=== PATIENT | female | born 1940 | race Caucasian/White ===

== ENCOUNTER 2023-04-25 17:38 | Observation (INO) | payer OTHER ==
--- NOTE | 2023-04-25 18:00 | RAD REPORT ---
EXAM DESCRIPTION: CT - Ct Stroke Brain Wo Cont - 04/25/2023 5:45 pm CLINICAL HISTORY: STROKE ALERT COMPARISON: No comparisons TECHNIQUE: Noncontrast head CT images were obtained without IV contrast. Multiplanar reformats were generated and reviewed. All CT scans are performed using dose optimization technique as appropriate and may include automated exposure control or mA/KV adjustment according to patient size. FINDINGS: No intracranial hemorrhage, mass, or edema. Midline structures are unremarkable. Normal ventricular caliber for age. Nonspecific periventricular and deep white matter hypodensities, suggestive of chronic small vessel i schemic changes. Right frontal and parietal cortical areas of encephalomalacia with underlying white matter hypodensit y, favored to represent sequelae of remote ischemia. Khan-white matter differentiation elsewhere is p reserved, without evidence of acute infarct. No abnormal extra-axial fluid collections. Mastoid air cells are clear. Opacification with polypoidal thickening in the left sphenoid sinus. No acute bony findings. Follow up Breast ptosis frontalis interna noted. IMPRESSION: No evidence of an acute intracranial process. Right frontal and parietal cortical regions of encephalomalacia, concerning for sequelae of remote is chemia. Left sphenoid sinus opacification, please correlate for symptoms of acute sinusitis.
[2023-04-25 18:04] LABS: Absolute Lymphocytes (CBC) 1.6 K/uL (0.7-4.9); Hematocrit 42.4 % (36.0-45.0); Lymphocytes % 20.5 % (15.3-44.8); MCV 93.3 fL (80-100); MPV 7.5 fL (7.6-11.3); Platelets 333 thou/uL (152-406); RBC Red Blood Cell Count 4.55 M/uL (3.86-4.86)
[2023-04-25 18:10] LABS: Protime INR 2.2
[2023-04-25 18:22] LABS: Troponin High Sensitivity 10.2 pg/mL (<58.9)
--- NOTE | 2023-04-25 18:56 | RAD REPORT ---
EXAM DESCRIPTION: [place] Single View04/25/2023 6:11 pm CLINICAL HISTORY: facial droop COMPARISON: No comparisons TECHNIQUE: Portable AP view of the chest. FINDINGS: The lungs are clear apart from streaky right basilar opacities suggestive of atelectasis. Patient rotation limits evaluation. No pneumothorax or effusion. The cardiomediastinal contours are unremarkable. IMPRESSION: No acute cardiopulmonary process.
--- NOTE | 2023-04-25 20:03 | RAD REPORT ---
EXAM DESCRIPTION: CT - Neck Angio - 04/25/2023 7:28 pm CLINICAL HISTORY: facial droop COMPARISON: No comparisons TECHNIQUE: Axial CT angiography images of the head was performed with multiplanar and maximum intens ity projection reconstructions. Images performed following intravenous administration of 100mL Isovue 370. All CT scans are performed using dose optimization technique as appropriate and may include automated exposure control or mA/KV adjustment according to patient size. Quantification of carotid stenosis, if any, is performed according to NASCET criteria. FINDINGS: A left aortic arch is identified with variant 2 vessel arch configuration of the great ves sels. No significant flow abnormality is seen of the common carotid bilaterally. Up to moderate atherosclerotic calcifications at the carotid bulbs. No significant stenosis is identi fied involving the cervical segments of both internal carotid arteries. Preserved flow is seen within both vertebral arteries throughout the neck, although there is multifoc al [id number] narrowing of the left vertebral artery at its origin, along the distal V1, proxim al V2, and proximal V3 segments. IMPRESSION: Multifocal up to moderate narrowing of the left vertebral artery, starting at the origin , favored to relate to noncalcified atherosclerotic plaque. No other significant flow abnormality of the neck vessels is identified. CAROTID STENOSIS REFERENCE USING NASCET CRITERIA: % ICA stenosis = (1 - narrowest ICA diameter/diameter of distal cervical ICA) x 100. Mild - <50% stenosis. Moderate - 50-69% stenosis. Severe - 70-94% stenosis. Near occlusion - 95-99% stenosis. Occluded - 100% stenosis.
--- NOTE | 2023-04-25 20:06 | ER ---
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 The charge nurse has been notified. The kc6 patients blood glucose was checked before arriving to the hospital and was found to be normal. Initial Sepsis Screen: Does the patient meet any 2 criteria? No. Patient's initial sepsis screen is negative. Does the patient have a suspected source of infection? No. Patient's initial sepsis screen is negative. 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 Coronavirus screen: At this time, the client does not indicate any symptoms associated with coronavirus-19. Ebola Screen: No symptoms or risks identified at this time. Risk Assessment: Do you want to hurt yourself or someone else? Patient reports no desire to harm self or others. Onset of symptoms was April 25, 2023 at 16:45. 17:53 Method Of Arrival: EMS: [facility] ap3 17:53 Acuity: RICKEY 2 ap3 Triage Assessment: 17:29 The onset of the patients symptoms was April 25, 2023 at 16:00. kc6 17:29 General: Appears in no apparent distress. comfortable, obese, well groomed, well kc6 developed, Behavior is calm, cooperative, appropriate for age. Pain: Denies pain. EENT: No signs and/or symptoms were reported regarding the EENT system. 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 Full function Gait is steady, Speech is normal, Facial droop on left, Facial symmetry: tongue is midline, Pupils are PERRLA, Intact. Cardiovascular: Capillary refill < 3 seconds. Respiratory: Airway is patent Trachea midline Respiratory effort is even, unlabored, Respiratory pattern is regular, symmetrical. GI: No signs and/or symptoms were reported involving the gastrointestinal system. : No signs and/or symptoms were reported regarding the genitourinary system. Derm: No signs and/or symptoms reported regarding the dermatologic system. Skin is intact, is healthy with good turgor, Skin is pink, warm \T\ dry. Musculoskeletal: No signs and/or symptoms reported regarding the musculoskeletal system. Circulation, motion, and sensation intact. Capillary refill < 3 seconds, Range of motion: intact in all extremities. Stroke Activation: Symptom onset < 3 hours Physician: Stroke Attending; Name: ; Notified At: ; Arrived At: Physician: Chief Stroke Resident; Name: ; Notified At: ; Arrived At: Physician: Stroke Resident; Name: ; Notified At: ; Arrived At: Physician: ED Attending; Name: ; Notified At: ; Arrived At: Physician: ED Resident; Name: ; Notified At: ; Arrived At: Historical: - Allergies: 18:02 No Known Allergies; kc6 - PMHx: 18:02 Hypertensive disorder; pleural effusion; kc6 - Immunization history:: Adult Immunizations up to date. - Social history:: Smoking status: Patient denies any tobacco usage or history of. Screenin:29 [place] Swallow Protocol Brief Cognitive Screen What is your name? Normal, Where are you kc6 right now? Normal, What year is it? Normal. Oral Mechanism Examination Facial Symmetry: Normal, Motion: Normal, Lip Closure: Normal, Oral Mechanism Result: Normal. 3 oz Water Swallow Challenge: Pt able to drink all water without stopping, coughing, choking or throat clearing: Yes Result: PASS MD Notified: Chaim Daily MD. 17:54 Abuse screen: Denies threats or abuse. Nutritional screening: No deficits noted. ap3 Tuberculosis screening: No symptoms or risk factors identified. 18:00 [facility] ED Fall Risk Assessment (Adult) History of falling in the last 3 months, kc6 including since admission No falls in past 3 months (0 pts) Confusion or Disorientation No (0 pts) Intoxicated or Sedated No (0 pts) Impaired Gait Yes (1 pt) Mobility Assist Device Used Yes (1 pt) Altered Elimination No (0 pt) Score/Fall Risk Level 0 - 2 = Low Risk. Assessment: 17:29 Reassessment: please see triage assessment. kc6 17:29 VAN Scoring: Arm Drift: Patients demonstrates NO arm weakness. Patient is VAN Negative. kc6 Visual Disturbance: No visual disturbance noted. Aphasia: No aphasia noted. Neglect: No neglect noted. 18:29 Reassessment: Patient appears in no apparent distress at this time. No changes from kc6 previously documented assessment. Patient and/or family updated on plan of care and expected duration. Pain level reassessed. Patient is alert, oriented x 3, equal unlabored respirations, skin warm/dry/pink. 19:00 General: Appears in no apparent distress. comfortable, obese, well groomed, well pf1 developed, Behavior is calm, cooperative, appropriate for age, quiet. 19:00 Pain: Denies pain. Neuro: Level of Consciousness is awake, alert, obeys commands, pf1 Oriented to person, place, time, left side mouth has facial droop when smiling. Cardiovascular: No deficits noted. Capillary refill < 3 seconds Patient's skin is warm and dry. Respiratory: No deficits noted. Airway is patent Respiratory effort is even, unlabored, Respiratory pattern is regular, symmetrical. GI: No deficits noted. Abdomen is round non-distended. : No deficits noted. No signs and/or symptoms were reported regarding the genitourinary system. EENT: No deficits noted. No signs and/or symptoms were reported regarding the EENT system. Derm: No deficits noted. No signs and/or symptoms reported regarding the dermatologic system. Musculoskeletal: No deficits noted. No signs and/or symptoms reported regarding the musculoskeletal system. 20:00 Reassessment: Patient appears in no apparent distress at this time. Patient and/or pf1 family updated on plan of care and expected duration. Pain level reassessed. Patient is alert, oriented x 3, equal unlabored respirations, skin warm/dry/pink. 21:00 Reassessment: Patient appears in no apparent distress at this time. Patient and/or pf1 family updated on plan of care and expected duration. Pain level reassessed. 22:00 Reassessment: Patient appears in no apparent distress at this time. Patient and/or pf1 family updated on plan of care and expected duration. Pain level reassessed. Patient is alert, oriented x 3, equal unlabored respirations, skin warm/dry/pink. 23:00 Reassessment: Patient appears in no apparent distress at this time. No changes from pf1 previously documented assessment. Patient and/or family updated on plan of care and expected duration. Pain level reassessed. Patient is alert, oriented x 3, equal unlabored respirations, skin warm/dry/pink. 04/26 00:00 Reassessment: Patient appears in no apparent distress at this time. Patient and/or pf1 family updated on plan of care and expected duration. Pain level reassessed. Patient is alert, oriented x 3, equal unlabored respirations, skin warm/dry/pink. 01:00 Reassessment: Patient appears in no apparent distress at this time. Patient and/or pf1 family updated on plan of care and expected duration. Pain level reassessed. Patient is alert, oriented x 3, equal unlabored respirations, skin warm/dry/pink. Vital Signs: 04/25 18:00 BP 192 / 101; Pulse 76; Resp 21 S; Temp 98.2(TE); Pulse Ox 99% on R/A; Weight 90.72 kg kc6 (R); Height 5 ft. 4 in. (R); 18:09 BP 171 / 91; kc6 19:00 BP 170 / 79; Pulse 84; Resp 16; Temp 98.1; Pulse Ox 99% on R/A; Pain 0/10; pf1 20:00 BP 176 / 108; Pulse 83; Resp 16; Pulse Ox 98% on R/A; Pain 0/10; pf1 21:00 BP 156 / 76; Pulse 80; Resp 18; Pulse Ox 100% ; Pain 0/10; pf1 22:00 BP 206 / 79; Pulse 90; Resp 16; Pulse Ox 98% ; pf1 22:30 BP 184 / 74; Pulse 86; Resp 16; Pulse Ox 97% on R/A; Pain 0/10; pf1 23:30 BP 166 / 73; Pulse 64; Resp 16; Pulse Ox 96% on R/A; Pain 0/10; pf1 04/26 00:30 BP 152 / 68; Pulse 68; Resp 20; Pulse Ox 96% on R/A; Pain 0/10; pf1 04/25 18:00 Body Mass Index 34.33 (90.72 kg, 162.56 cm) kc6 19:00 Pain Scale: Adult pf1 20:00 Pain Scale: Adult pf1 21:00 Pain Scale: Adult pf1 22:30 Pain Scale: Adult pf1 23:30 Pain Scale: Adult pf1 04/26 00:30 Pain Scale: Adult pf1 NIH Stroke Scale Scores: 04/25 17:29 NIHSS Score: 1 kc6 17:29 NIHSS Score: 1 kc6 17:53 NIHSS Score: 1 kdr 19:00 NIHSS Score: 1 pf1 20:00 NIHSS Score: 1 pf1 21:00 NIHSS Score: 1 pf1 22:00 NIHSS Score: 1 pf1 23:00 NIHSS Score: 1 pf1 04/26 00:00 NIHSS Score: 1 pf1 01:00 NIHSS Score: 1 pf1 ED Course: 04/25 17:29 Patient has correct armband on for positive identification. Placed in gown. Bed in low kc6 position. Call light in reach. Side rails up X2. Client placed on continuous cardiac and pulse oximetry monitoring. NIBP monitoring applied. monitor worker on. 17:42 Patient arrived in ED. sb4 17:45 CT Stroke Brain w/o Contrast In Process Unspecified. EDMS 17:49 Chaim Daily MD is Attending Physician. kdr 17:54 Triage completed. ap3 17:55 Arm band placed on right wrist. ap3 18:00 Elida Nye RN is Primary Nurse. kc6 18:00 Inserted saline lock: 20 gauge in right antecubital area, using aseptic technique. kc6 Blood collected. Patient maintains SpO2 saturation greater than 95% on room air. 18:13 Stroke CXR 1 View In Process Unspecified. EDMS 19:00 Report given to ISRA Martinez. kc6 19:29 CT Head Angio In Process Unspecified. EDMS 19:29 CT Neck Angio In Process Unspecified. EDMS 20:05 Francisco Escalante MD is Hospitalizing Provider. kdr 20:35 initiated tranfer with [facility] with Shawna at the transfer center. jr12 21:04 Provided Education on: need for admit. pf1 21:04 Patient admitted, IV remains in place. pf1 21:04 No provider procedures requiring assistance completed. pf1 22:18 transfer to [facility] is put on hold due to family members debating wether they [facility] want patient transfer to [facility] instead or not. 22:27 Initiated transfer with [facility].spoke with [place] [id number] coordinator. will call back if they have availability. 22:44 Miguel Angelsnehal from [facility] transfer center returned call declined transfer due to capacity. jr12 23:18 family decided to proceed with transfer with [facility]. contacted [facility] jr12 to proceed with transfer..Spoke with Shawna again. Administered Medications: 22:40 Drug: Metoprolol PO 25 mg PO once Route: PO; pf1 23:24 Follow up: Response: Blood pressure is lowered pf1 23:30 Drug: Aspirin PO 325 mg PO once Route: PO; pf1 04/26 00:30 Follow up: Response: No adverse reaction pf1 04/25 23:45 Drug: Clopidogrel PO 300 mg PO once Route: PO; pf1 04/26 00:30 Follow up: Response: No adverse reaction pf1 Medication: 04/25 21:04 VIS not applicable for this client. pf1 Outcome: 20:05 Decision to Hospitalize by Provider. kdr 21:04 Admitted to ER Hold. Please see [facility] for further documentation. pf1 21:04 Condition: stable 21:04 Instructed on the need for admit, Demonstrated understanding of instructions, 23:16 ER care complete, transfer ordered by . kdr 04/26 01:07 Transferred by ground EMS to [facility], Transfer form completed. pf1 X-rays sent w/ patient. Condition: stable Instructed on the need for transfer, Demonstrated understanding of instructions, patient report given to ISRA Carver and report given to EMS. Patient being transferred at this time. 01:08 Patient left the ED. pf1 NIH Stroke Scale - NIH Stroke Score Date: 04/25/2023 Time: 17:29 Total Score = 1 10. Dysarthria (speech clarity - read or repeat words) - 0(Normal) 11. Extinction and Inattention (visual/tactile/auditory/spatial/personal) - 0(No abnormality) 1a. Level of Consciousness (LOC) - 0(Alert) 1b. Level of Consciousness (LOC) (Month \T\ Age) - 0(Both) 1c. LOC Commands (Open \T\ Closes Eyes/Supervisor Forming And Tempering) - 0(Both) 2. Best Gaze (Lateral Gaze Paresis) - 0(Normal) 3. Visual Field Loss - 0(No visual loss) 4. Facial Palsy - 1(Minor Paralysis) 5a. Left Arm: Motor (10-second hold) - 0(No drift) 5b. Right Arm: Motor (10-second hold) - 0(No drift) 6a. Left Leg: Motor (5-second hold - always test supine) - 0(No drift) 6b. Right Leg: Motor (5-second hold - always test supine) - 0(No drift) 7. Limb Ataxia (finger/nose \T\ heel/guzman - test with eyes open) - 0(Absent) 8. Sensory Loss (pinprick arms/legs/face) - 0(Normal) 9. Best Language: Aphasia (description/naming/reading) - 0(No aphasia) Initials: 6 NIH Stroke Scale - NIH Stroke Score Date: 04/25/2023 Time: 17:29 Total Score = 1 10. Dysarthria (speech clarity - read or repeat words) - 0(Normal) 11. Extinction and Inattention (visual/tactile/auditory/spatial/personal) - 0(No abnormality) 1a. Level of Consciousness (LOC) - 0(Alert) 1b. Level of Consciousness (LOC) (Month \T\ Age) - 0(Both) 1c. LOC Commands (Open \T\ Closes Eyes/Supervisor Forming And Tempering) - 0(Both) 2. Best Gaze (Lateral Gaze Paresis) - 0(Normal) 3. Visual Field Loss - 0(No visual loss) 4. Facial Palsy - 1(Minor Paralysis) 5a. Left Arm: Motor (10-second hold) - 0(No drift) 5b. Right Arm: Motor (10-second hold) - 0(No drift) 6a. Left Leg: Motor (5-second hold - always test supine) - 0(No drift) 6b. Right Leg: Motor (5-second hold - always test supine) - 0(No drift) 7. Limb Ataxia (finger/nose \T\ heel/guzman - test with eyes open) - 0(Absent) 8. Sensory Loss (pinprick arms/legs/face) - 0(Normal) 9. Best Language: Aphasia (description/naming/reading) - 0(No aphasia) Initials: kc6 NIH Stroke Scale - NIH Stroke Score Date: 04/25/2023 Time: 17:53 Total Score = 1 10. Dysarthria (speech clarity - read or repeat words) - 0(Normal) 11. Extinction and Inattention (visual/tactile/auditory/spatial/personal) - 0(No abnormality) 1a. Level of Consciousness (LOC) - 0(Alert) 1b. Level of Consciousness (LOC) (Month \T\ Age) - 0(Both) 1c. LOC Commands (Open \T\ Closes Eyes/Supervisor Forming And Tempering) - 0(Both) 2. Best Gaze (Lateral Gaze Paresis) - 0(Normal) 3. Visual Field Loss - 0(No visual loss) 4. Facial Palsy - 1(Minor Paralysis) 5a. Left Arm: Motor (10-second hold) - 0(No drift) 5b. Right Arm: Motor (10-second hold) - 0(No drift) 6a. Left Leg: Motor (5-second hold - always test supine) - 0(No drift) 6b. Right Leg: Motor (5-second hold - always test supine) - 0(No drift) 7. Limb Ataxia (finger/nose \T\ heel/guzman - test with eyes open) - 0(Absent) 8. Sensory Loss (pinprick arms/legs/face) - 0(Normal) 9. Best Language: Aphasia (description/naming/reading) - 0(No aphasia) Initials: kdr NIH Stroke Scale - NIH Stroke Score Date: 04/25/2023 Time: 19:00 Total Score = 1 10. Dysarthria (speech clarity - read or repeat words) - 0(Normal) 11. Extinction and Inattention (visual/tactile/auditory/spatial/personal) - 0(No abnormality) 1a. Level of Consciousness (LOC) - 0(Alert) 1b. Level of Consciousness (LOC) (Month \T\ Age) - 0(Both) 1c. LOC Commands (Open \T\ Closes Eyes/Supervisor Forming And Tempering) - 0(Both) 2. Best Gaze (Lateral Gaze Paresis) - 0(Normal) 3. Visual Field Loss - 0(No visual loss) 4. Facial Palsy - 1(Minor Paralysis) 5a. Left Arm: Motor (10-second hold) - 0(No drift) 5b. Right Arm: Motor (10-second hold) - (No drift) 6a. Left Leg: Motor (5-second hold - always test supine) - 0(No drift) 6b. Right Leg: Motor (5-second hold - always test supine) - 0(No drift) 7. Limb Ataxia (finger/nose \T\ heel/guzman - test with eyes open) - 0(Absent) 8. Sensory Loss (pinprick arms/legs/face) - 0(Normal) 9. Best Language: Aphasia (description/naming/reading) - 0(No aphasia) Initials: pf1 NIH Stroke Scale - NIH Stroke Score Date: 04/25/2023 Time: 20:00 Total Score = 1 10. Dysarthria (speech clarity - read or repeat words) - 0(Normal) 11. Extinction and Inattention (visual/tactile/auditory/spatial/personal) - 0(No abnormality) 1a. Level of Consciousness (LOC) - 0(Alert) 1b. Level of Consciousness (LOC) (Month \T\ Age) - 0(Both) 1c. LOC Commands (Open \T\ Closes Eyes/Supervisor Forming And Tempering) - 0(Both) 2. Best Gaze (Lateral Gaze Paresis) - 0(Normal) 3. Visual Field Loss - 0(No visual loss) 4. Facial Palsy - 1(Minor Paralysis) 5a. Left Arm: Motor (10-second hold) - 0(No drift) 5b. Right Arm: Motor (10-second hold) - 0(No drift) 6a. Left Leg: Motor (5-second hold - always test supine) - 0(No drift) 6b. Right Leg: Motor (5-second hold - always test supine) - 0(No drift) 7. Limb Ataxia (finger/nose \T\ heel/guzman - test with eyes open) - 0(Absent) 8. Sensory Loss (pinprick arms/legs/face) - 0(Normal) 9. Best Language: Aphasia (description/naming/reading) - 0(No aphasia) Initials: pf1 NIH Stroke Scale - NIH Stroke Score Date: 04/25/2023 Time: 21:00 Total Score = 1 10. Dysarthria (speech clarity - read or repeat words) - 0(Normal) 11. Extinction and Inattention (visual/tactile/auditory/spatial/personal) - 0(No abnormality) 1a. Level of Consciousness (LOC) - 0(Alert) 1b. Level of Consciousness (LOC) (Month \T\ Age) - 0(Both) 1c. LOC Commands (Open \T\ Closes Eyes/Supervisor Forming And Tempering) - 0(Both) 2. Best Gaze (Lateral Gaze Paresis) - 0(Normal) 3. Visual Field Loss - 0(No visual loss) 4. Facial Palsy - 1(Minor Paralysis) 5a. Left Arm: Motor (10-second hold) - 0(No drift) 5b. Right Arm: Motor (10-second hold) - 0(No drift) 6a. Left Leg: Motor (5-second hold - always test supine) - 0(No drift) 6b. Right Leg: Motor (5-second hold - always test supine) - 0(No drift) 7. Limb Ataxia (finger/nose \T\ heel/guzman - test with eyes open) - 0(Absent) 8. Sensory Loss (pinprick arms/legs/face) - 0(Normal) 9. Best Language: Aphasia (description/naming/reading) - 0(No aphasia) Initials: pf1 NIH Stroke Scale - NIH Stroke Score Date: 04/25/2023 Time: 22:00 Total Score = 1 10. Dysarthria (speech clarity - read or repeat words) - 0(Normal) 11. Extinction and Inattention (visual/tactile/auditory/spatial/personal) - 0(No abnormality) 1a. Level of Consciousness (LOC) - 0(Alert) 1b. Level of Consciousness (LOC) (Month \T\ Age) - 0(Both) 1c. LOC Commands (Open \T\ Closes Eyes/Supervisor Forming And Tempering) - 0(Both) 2. Best Gaze (Lateral Gaze Paresis) - 0(Normal) 3. Visual Field Loss - 0(No visual loss) 4. Facial Palsy - 1(Minor Paralysis) 5a. Left Arm: Motor (10-second hold) - 0(No drift) 5b. Right Arm: Motor (10-second hold) - 0(No drift) 6a. Left Leg: Motor (5-second hold - always test supine) - 0(No drift) 6b. Right Leg: Motor (5-second hold - always test supine) - 0(No drift) 7. Limb Ataxia (finger/nose \T\ heel/guzman - test with eyes open) - 0(Absent) 8. Sensory Loss (pinprick arms/legs/face) - 0(Normal) 9. Best Language: Aphasia (description/naming/reading) - 0(No aphasia) Initials: pf1 NIH Stroke Scale - NIH Stroke Score Date: 04/25/2023 Time: 23:00 Total Score = 1 10. Dysarthria (speech clarity - read or repeat words) - 0(Normal) 11. Extinction and Inattention (visual/tactile/auditory/spatial/personal) - 0(No abnormality) 1a. Level of Consciousness (LOC) - 0(Alert) 1b. Level of Consciousness (LOC) (Month \T\ Age) - 0(Both) 1c. LOC Commands (Open \T\ Closes Eyes/Supervisor Forming And Tempering) - 0(Both) 2. Best Gaze (Lateral Gaze Paresis) - 0(Normal) 3. Visual Field Loss - 0(No visual loss) 4. Facial Palsy - 1(Minor Paralysis) 5a. Left Arm: Motor (10-second hold) - 0(No drift) 5b. Right Arm: Motor (10-second hold) - 0(No drift) 6a. Left Leg: Motor (5-second hold - always test supine) - 0(No drift) 6b. Right Leg: Motor (5-second hold - always test supine) - 0(No drift) 7. Limb Ataxia (finger/nose \T\ heel/guzman - test with eyes open) - 0(Absent) 8. Sensory Loss (pinprick arms/legs/face) - 0(Normal) 9. Best Language: Aphasia (description/naming/reading) - 0(No aphasia) Initials: pf1 NIH Stroke Scale - NIH Stroke Score Date: 04/26/2023 Time: 00:00 Total Score = 1 10. Dysarthria (speech clarity - read or repeat words) - 0(Normal) 11. Extinction and Inattention (visual/tactile/auditory/spatial/personal) - 0(No abnormality) 1a. Level of Consciousness (LOC) - 0(Alert) 1b. Level of Consciousness (LOC) (Month \T\ Age) - 0(Both) 1c. LOC Commands (Open \T\ Closes Eyes/Supervisor Forming And Tempering) - 0(Both) 2. Best Gaze (Lateral Gaze Paresis) - 0(Normal) 3. Visual Field Loss - 0(No visual loss) 4. Facial Palsy - 1(Minor Paralysis) 5a. Left Arm: Motor (10-second hold) - 0(No drift) 5b. Right Arm: Motor (10-second hold) - 0(No drift) 6a. Left Leg: Motor (5-second hold - always test supine) - 0(No drift) 6b. Right Leg: Motor (5-second hold - always test supine) - 0(No drift) 7. Limb Ataxia (finger/nose \T\ heel/guzman - test with eyes open) - 0(Absent) 8. Sensory Loss (pinprick arms/legs/face) - 0(Normal) 9. Best Language: Aphasia (description/naming/reading) - 0(No aphasia) Initials: pf1 NIH Stroke Scale - NIH Stroke Score Date: 04/26/2023 Time: 01:00 Total Score = 1 10. Dysarthria (speech clarity - read or repeat words) - 0(Normal) 11. Extinction and Inattention (visual/tactile/auditory/spatial/personal) - 0(No abnormality) 1a. Level of Consciousness (LOC) - 0(Alert) 1b. Level of Consciousness (LOC) (Month \T\ Age) - 0(Both) 1c. LOC Commands (Open \T\ Closes Eyes/Supervisor Forming And Tempering) - 0(Both) 2. Best Gaze (Lateral Gaze Paresis) - 0(Normal) 3. Visual Field Loss - 0(No visual loss) 4. Facial Palsy - 1(Minor Paralysis) 5a. Left Arm: Motor (10-second hold) - 0(No drift) 5b. Right Arm: Motor (10-second hold) - 0(No drift) 6a. Left Leg: Motor (5-second hold - always test supine) - 0(No drift) 6b. Right Leg: Motor (5-second hold - always test supine) - 0(No drift) 7. Limb Ataxia (finger/nose \T\ heel/guzman - test with eyes open) - 0(Absent) 8. Sensory Loss (pinprick arms/legs/face) - 0(Normal) 9. Best Language: Aphasia (description/naming/reading) - 0(No aphasia) Initials: pf1 Signatures: Dispatcher [employer] EDMS Chaim Daily MD MD kdr Prokisch, Amanda, RN RN [email or web address] Elida Nye RN RN [email or web address] Judi Kelley PA-C PA-C sb4 Finley, Pamala, RN RN pf1 Juli Boyd jr12 Corrections: (The following items were deleted from the chart) 04/25 18:10 18:09 BP 172 / 76; [email or web address] kc6 22:31 22:00 Reassessment: Patient appears in no apparent distress at this time. pf1 Patient and/or family updated on plan of care and expected duration. Pain level reassessed. pf1 22:59 22:18 transfer to [facility] is put on hold due to family members debating jr12 wether they want patient transfer to [facility] instead or not. jr12
--- NOTE | 2023-04-25 20:06 | EDPHYS ---
Physician Documentation [facility] Name: Misael Ackerman Age: 82 yrs Sex: Female : 1940 Arrival Date: 04/25/2023 Time: 17:38 Bed 20 Private MD: ED Physician Chaim Daily HPI: 04/25 20:05 This 82 yrs old Female presents to ER via EMS with complaints of S/S of Possible Stroke.kdr 20:06 The patient and EMS report that the [facility] staff felt that there may have been an kdr acute onset of left facial droop. On EMS arrival there was some asymmetry of the face but is unclear as to whether that was new or old. Patient presented here with slight facial asymmetry that was primarily focused on her left upper eyelid. The patient's charting that was sent with her contained a photo of the patient and when the patient was asked to smile without teeth, the lips were straight without deviation or drooping. There did seem to be slightly more drooping of the upper eyelid on the left but otherwise there was no other discernible neurologic deficit when the patient presented to the ED. I discussed the case with Dr. Hawkins and it was agreed that the patient was not a candidate (stroke scale 1) for TNK.. Onset: The symptoms/episode began/occurred suddenly, just prior to arrival. Severity of symptoms: At their worst the symptoms were very mild in the emergency department the symptoms have resolved. It is unknown whether or not the patient has had similar symptoms in the past. It is unknown whether or not the patient has recently seen a physician. Historical: - Allergies: 18:02 No Known Allergies; kc6 - PMHx: 18:02 Hypertensive disorder; pleural effusion; kc6 - Immunization history:: Adult Immunizations up to date. - Social history:: Smoking status: Patient denies any tobacco usage or history of. ROS: 20:06 Constitutional: Negative for fever, chills, and weight loss, ENT: Negative for injury, kdr pain, and discharge, Neck: Negative for injury, pain, and swelling, Cardiovascular: Negative for chest pain, palpitations, and edema, Respiratory: Negative for shortness of breath, cough, wheezing, and pleuritic chest pain, Abdomen/GI: Negative for abdominal pain, nausea, vomiting, diarrhea, and constipation, Back: Negative for injury and pain, : Negative for injury, bleeding, discharge, and swelling, MS/Extremity: Negative for injury and deformity, Skin: Negative for injury, rash, and discoloration, Neuro: Negative for headache, weakness, numbness, tingling, and seizure activity. Psych: Negative for depression, anxiety, suicide ideation, homicidal ideation, and hallucinations, Allergy/Immunology: Negative for hives, rash, and allergies, Endocrine: Negative for neck swelling, polydipsia, polyuria, polyphagia, and marked weight changes, Hematologic/Lymphatic: Negative for swollen nodes, abnormal bleeding, and unusual bruising, 20:06 Neuro: Positive for Left upper eyelid drooping compared to the right, Negative for altered mental status, dizziness, gait disturbance, headache, hearing loss, loss of consciousness, numbness, seizure activity, speech changes, syncope, near syncope, tingling, tinnitus, tremor, visual changes, Exam: 20:06 Constitutional: This is a well developed, well nourished patient who is awake, alert, kdr and in no acute distress. Head/Face: Normocephalic, atraumatic. Eyes: Pupils equal round and reactive to light, extra-ocular motions intact. Lids and lashes normal. Conjunctiva and sclera are non-icteric and not injected. Cornea within normal limits. Periorbital areas with no swelling, redness, or edema. Neck: Trachea midline, no thyromegaly or masses palpated, and no cervical lymphadenopathy. Supple, full range of motion without nuchal rigidity, or vertebral point tenderness. No Meningismus. Chest/axilla: Normal chest wall appearance and motion. Nontender with no deformity. No lesions are appreciated. Cardiovascular: Regular rate and rhythm with a normal S1 and S2. No gallops, murmurs, or rubs. Normal PMI, no JVD. No pulse deficits. Respiratory: Lungs have equal breath sounds bilaterally, clear to auscultation and percussion. No rales, rhonchi or wheezes noted. No increased work of breathing, no retractions or nasal flaring. Abdomen/GI: Soft, non-tender, with normal bowel sounds. No distension or tympany. No guarding or rebound. No evidence of tenderness throughout. Back: No spinal tenderness. No costovertebral tenderness. Full range of motion. Skin: Warm, dry with normal turgor. Normal color with no rashes, no lesions, and no evidence of cellulitis. MS/ Extremity: Pulses equal, no cyanosis. Neurovascular intact. Full, normal range of motion. Neuro: Awake and alert, GCS 15, oriented to person, place, time, and situation. Cranial nerves II-XII grossly intact. Motor strength 5/5 in all extremities. Sensory grossly intact. Cerebellar exam normal. Normal gait. Psych: Awake, alert, with orientation to person, place and time. Behavior, mood, and affect are within normal limits. 20:06 Neuro: Cranial nerves: unable to test, Possible slight drooping of the left upper eyelid, Vital Signs: 18:00 BP 192 / 101; Pulse 76; Resp 21 S; Temp 98.2(TE); Pulse Ox 99% on R/A; Weight 90.72 kg kc6 (R); Height 5 ft. 4 in. (R); 18:09 BP 171 / 91; kc6 19:00 BP 170 / 79; Pulse 84; Resp 16; Temp 98.1; Pulse Ox 99% on R/A; Pain 0/10; pf1 20:00 BP 176 / 108; Pulse 83; Resp 16; Pulse Ox 98% on R/A; Pain 0/10; pf1 21:00 BP 156 / 76; Pulse 80; Resp 18; Pulse Ox 100% ; Pain 0/10; pf1 22:00 BP 206 / 79; Pulse 90; Resp 16; Pulse Ox 98% ; pf1 22:30 BP 184 / 74; Pulse 86; Resp 16; Pulse Ox 97% on R/A; Pain 0/10; pf1 23:30 BP 166 / 73; Pulse 64; Resp 16; Pulse Ox 96% on R/A; Pain 0/10; pf1 04/26 00:30 BP 152 / 68; Pulse 68; Resp 20; Pulse Ox 96% on R/A; Pain 0/10; pf1 04/25 18:00 Body Mass Index 34.33 (90.72 kg, 162.56 cm) kc6 19:00 Pain Scale: Adult pf1 20:00 Pain Scale: Adult pf1 21:00 Pain Scale: Adult pf1 22:30 Pain Scale: Adult pf1 23:30 Pain Scale: Adult pf1 04/26 00:30 Pain Scale: Adult pf1 NIH Stroke Scale Scores: 04/25 17:29 NIHSS Score: 1 kc6 17:29 NIHSS Score: 1 kc6 17:53 NIHSS Score: 1 kdr 19:00 NIHSS Score: 1 pf1 20:00 NIHSS Score: 1 pf1 21:00 NIHSS Score: 1 pf1 22:00 NIHSS Score: 1 pf1 23:00 NIHSS Score: 1 pf1 04/26 00:00 NIHSS Score: 1 pf1 01:00 NIHSS Score: 1 pf1 MDM: 04/25 20:05 Patient medically screened. kdr 20:06 Data reviewed: vital signs, nurses notes, lab test result(s), radiologic studies. kdr 20:31 ED course: Discussed with Dr. Hawkins the findings of the CT angiograms. He kdr recommended transfer to [facility] for 4 vessel angiogram. Have initiated transfer. 04/25 17:42 Order name: Basic Metabolic Panel; Complete Time: 20:17 4 04/25 17:42 Order name: CBC with Diff; Complete Time: 20:17 [facility] 04/25 17:42 Order name: High Sensitivity Troponin; Complete Time: 20:17 sb4 04/25 17:42 Order name: Protime (+inr); Complete Time: 20:17 sb4 04/25 17:42 Order name: Ptt, Activated; Complete Time: 20:17 sb4 04/25 20:32 Order name: T4 Free; Complete Time: 23:18 EDMA 04/25 20:32 Order name: Thyroid Stimulating Hormone; Complete Time: 23:18 EDMA 04/25 20:32 Order name: Lipid Profile [facility] 04/25 20:32 Order name: Lipid Profile EDMA 04/25 17:42 Order name: CT Stroke Brain w/o Contrast; Complete Time: 20:17 sb4 04/25 17:42 Order name: Stroke CXR 1 View; Complete Time: 20:17 sb4 04/25 19:00 Order name: CT Head Angio; Complete Time: 20:27 kdr 04/25 19:00 Order name: CT Neck Angio; Complete Time: 20:17 kdr 04/25 17:42 Order name: EKG; Complete Time: 17:43 sb4 04/25 17:42 Order name: Accucheck; Complete Time: 18:06 sb4 04/25 17:42 Order name: Cardiac monitoring; Complete Time: 17:51 sb4 04/25 17:42 Order name: EKG - Nurse/Tech; Complete Time: 18:06 sb4 04/25 17:42 Order name: IV Saline Lock; Complete Time: 18:06 sb4 04/25 17:42 Order name: Labs collected and sent; Complete Time: 18:06 sb4 04/25 17:43 Order name: NPO; Complete Time: 18:06 sb4 04/25 17:43 Order name: O2 Per Protocol; Complete Time: 17:51 sb4 04/25 17:43 Order name: O2 Sat Monitoring; Complete Time: 17:51 sb4 04/25 17:43 Order name: Stroke Swallow Screen; Complete Time: 18:06 sb4 Administered Medications: 22:40 Drug: Metoprolol PO 25 mg PO once Route: PO; pf1 23:24 Follow up: Response: Blood pressure is lowered pf1 23:30 Drug: Aspirin PO 325 mg PO once Route: PO; pf1 04/26 00:30 Follow up: Response: No adverse reaction pf1 04/25 23:45 Drug: Clopidogrel PO 300 mg PO once Route: PO; pf1 04/26 00:30 Follow up: Response: No adverse reaction pf1 Disposition Summary: 04/25/23 23:16 Transfer Ordered Notes: Transfer Location: [facility] kdr Reason: Higher level of care kdr Condition: Fair(04/25/23 23:16) kdr Problem: new(04/25/23 23:16) kdr Symptoms: have improved(04/25/23 23:16) kdr Accepting Physician: Stehl/Neurology(04/26/23 01:08) pf1 Diagnosis - Facial weakness - left kdr - 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 Dysarthria (speech clarity - read or repeat words) - 0(Normal) 11. Extinction and Inattention (visual/tactile/auditory/spatial/personal) - 0(No abnormality) 1a. Level of Consciousness (LOC) - 0(Alert) 1b. Level of Consciousness (LOC) (Month \T\ Age) - 0(Both) 1c. LOC Commands (Open \T\ Closes Eyes/Press And Blow Machine Tender) - 0(Both) 2. Best Gaze (Lateral Gaze Paresis) - 0(Normal) 3. Visual Field Loss - 0(No visual loss) 4. Facial Palsy - 1(Minor Paralysis) 5a. Left Arm: Motor (10-second hold) - 0(No drift) 5b. Right Arm: Motor (10-second hold) - 0(No drift) 6a. Left Leg: Motor (5-second hold - always test supine) - 0(No drift) 6b. Right Leg: Motor (5-second hold - always test supine) - 0(No drift) 7. Limb Ataxia (finger/nose \T\ heel/guzman - test with eyes open) - 0(Absent) 8. Sensory Loss (pinprick arms/legs/face) - 0(Normal) 9. Best Language: Aphasia (description/naming/reading) - 0(No aphasia) Initials: kc6 NIH Stroke Scale - NIH Stroke Score Date: 04/25/2023 Time: 17:29 Total Score = 1 10. Dysarthria (speech clarity - read or repeat words) - 0(Normal) 11. Extinction and Inattention (visual/tactile/auditory/spatial/personal) - 0(No abnormality) 1a. Level of Consciousness (LOC) - 0(Alert) 1b. Level of Consciousness (LOC) (Month \T\ Age) - 0(Both) 1c. LOC Commands (Open \T\ Closes Eyes/Press And Blow Machine Tender) - 0(Both) 2. Best Gaze (Lateral Gaze Paresis) - 0(Normal) 3. Visual Field Loss - 0(No visual loss) 4. Facial Palsy - 1(Minor Paralysis) 5a. Left Arm: Motor (10-second hold) - 0(No drift) 5b. Right Arm: Motor (10-second hold) - 0(No drift) 6a. Left Leg: Motor (5-second hold - always test supine) - 0(No drift) 6b. Right Leg: Motor (5-second hold - always test supine) - 0(No drift) 7. Limb Ataxia (finger/nose \T\ heel/guzman - test with eyes open) - 0(Absent) 8. Sensory Loss (pinprick arms/legs/face) - 0(Normal) 9. Best Language: Aphasia (description/naming/reading) - 0(No aphasia) Initials: kc6 NIH Stroke Scale - NIH Stroke Score Date: 04/25/2023 Time: 17:53 Total Score = 1 10. Dysarthria (speech clarity - read or repeat words) - 0(Normal) 11. Extinction and Inattention (visual/tactile/auditory/spatial/personal) - 0(No abnormality) 1a. Level of Consciousness (LOC) - 0(Alert) 1b. Level of Consciousness (LOC) (Month \T\ Age) - 0(Both) 1c. LOC Commands (Open \T\ Closes Eyes/Press And Blow Machine Tender) - 0(Both) 2. Best Gaze (Lateral Gaze Paresis) - 0(Normal) 3. Visual Field Loss - 0(No visual loss) 4. Facial Palsy - 1(Minor Paralysis) 5a. Left Arm: Motor (10-second hold) - 0(No drift) 5b. Right Arm: Motor (10-second hold) - 0(No drift) 6a. Left Leg: Motor (5-second hold - always test supine) - 0(No drift) 6b. Right Leg: Motor (5-second hold - always test supine) - 0(No drift) 7. Limb Ataxia (finger/nose \T\ heel/guzman - test with eyes open) - 0(Absent) 8. Sensory Loss (pinprick arms/legs/face) - 0(Normal) 9. Best Language: Aphasia (description/naming/reading) - 0(No aphasia) Initials: kdr NIH Stroke Scale - NIH Stroke Score Date: 04/25/2023 Time: 19:00 Total Score = 1 10. Dysarthria (speech clarity - read or repeat words) - 0(Normal) 11. Extinction and Inattention (visual/tactile/auditory/spatial/personal) - 0(No abnormality) 1a. Level of Consciousness (LOC) - 0(Alert) 1b. Level of Consciousness (LOC) (Month \T\ Age) - 0(Both) 1c. LOC Commands (Open \T\ Closes Eyes/Press And Blow Machine Tender) - 0(Both) 2. Best Gaze (Lateral Gaze Paresis) - 0(Normal) 3. Visual Field Loss - 0(No visual loss) 4. Facial Palsy - 1(Minor Paralysis) 5a. Left Arm: Motor (10-second hold) - 0(No drift) 5b. Right Arm: Motor (10-second hold) - (No drift) 6a. Left Leg: Motor (5-second hold - always test supine) - 0(No drift) 6b. Right Leg: Motor (5-second hold - always test supine) - 0(No drift) 7. Limb Ataxia (finger/nose \T\ heel/guzman - test with eyes open) - 0(Absent) 8. Sensory Loss (pinprick arms/legs/face) - 0(Normal) 9. Best Language: Aphasia (description/naming/reading) - 0(No aphasia) Initials: pf1 NIH Stroke Scale - NIH Stroke Score Date: 04/25/2023 Time: 20:00 Total Score = 1 10. Dysarthria (speech clarity - read or repeat words) - 0(Normal) 11. Extinction and Inattention (visual/tactile/auditory/spatial/personal) - 0(No abnormality) 1a. Level of Consciousness (LOC) - 0(Alert) 1b. Level of Consciousness (LOC) (Month \T\ Age) - 0(Both) 1c. LOC Commands (Open \T\ Closes Eyes/Press And Blow Machine Tender) - 0(Both) 2. Best Gaze (Lateral Gaze Paresis) - 0(Normal) 3. Visual Field Loss - 0(No visual loss) 4. Facial Palsy - 1(Minor Paralysis) 5a. Left Arm: Motor (10-second hold) - 0(No drift) 5b. Right Arm: Motor (10-second hold) - 0(No drift) 6a. Left Leg: Motor (5-second hold - always test supine) - 0(No drift) 6b. Right Leg: Motor (5-second hold - always test supine) - 0(No drift) 7. Limb Ataxia (finger/nose \T\ heel/guzman - test with eyes open) - 0(Absent) 8. Sensory Loss (pinprick arms/legs/face) - 0(Normal) 9. Best Language: Aphasia (description/naming/reading) - 0(No aphasia) Initials: pf1 NIH Stroke Scale - NIH Stroke Score Date: 04/25/2023 Time: 21:00 Total Score = 1 10. Dysarthria (speech clarity - read or repeat words) - 0(Normal) 11. Extinction and Inattention (visual/tactile/auditory/spatial/personal) - 0(No abnormality) 1a. Level of Consciousness (LOC) - 0(Alert) 1b. Level of Consciousness (LOC) (Month \T\ Age) - 0(Both) 1c. LOC Commands (Open \T\ Closes Eyes/Press And Blow Machine Tender) - 0(Both) 2. Best Gaze (Lateral Gaze Paresis) - 0(Normal) 3. Visual Field Loss - 0(No visual loss) 4. Facial Palsy - 1(Minor Paralysis) 5a. Left Arm: Motor (10-second hold) - 0(No drift) 5b. Right Arm: Motor (10-second hold) - 0(No drift) 6a. Left Leg: Motor (5-second hold - always test supine) - 0(No drift) 6b. Right Leg: Motor (5-second hold - always test supine) - 0(No drift) 7. Limb Ataxia (finger/nose \T\ heel/guzman - test with eyes open) - 0(Absent) 8. Sensory Loss (pinprick arms/legs/face) - 0(Normal) 9. Best Language: Aphasia (description/naming/reading) - 0(No aphasia) Initials: pf1 NIH Stroke Scale - NIH Stroke Score Date: 04/25/2023 Time: 22:00 Total Score = 1 10. Dysarthria (speech clarity - read or repeat words) - 0(Normal) 11. Extinction and Inattention (visual/tactile/auditory/spatial/personal) - 0(No abnormality) 1a. Level of Consciousness (LOC) - 0(Alert) 1b. Level of Consciousness (LOC) (Month \T\ Age) - 0(Both) 1c. LOC Commands (Open \T\ Closes Eyes/Press And Blow Machine Tender) - 0(Both) 2. Best Gaze (Lateral Gaze Paresis) - 0(Normal) 3. Visual Field Loss - 0(No visual loss) 4. Facial Palsy - 1(Minor Paralysis) 5a. Left Arm: Motor (10-second hold) - 0(No drift) 5b. Right Arm: Motor (10-second hold) - 0(No drift) 6a. Left Leg: Motor (5-second hold - always test supine) - 0(No drift) 6b. Right Leg: Motor (5-second hold - always test supine) - 0(No drift) 7. Limb Ataxia (finger/nose \T\ heel/guzman - test with eyes open) - 0(Absent) 8. Sensory Loss (pinprick arms/legs/face) - 0(Normal) 9. Best Language: Aphasia (description/naming/reading) - 0(No aphasia) Initials: pf1 NIH Stroke Scale - NIH Stroke Score Date: 04/25/2023 Time: 23:00 Total Score = 1 10. Dysarthria (speech clarity - read or repeat words) - 0(Normal) 11. Extinction and Inattention (visual/tactile/auditory/spatial/personal) - 0(No abnormality) 1a. Level of Consciousness (LOC) - 0(Alert) 1b. Level of Consciousness (LOC) (Month \T\ Age) - 0(Both) 1c. LOC Commands (Open \T\ Closes Eyes/Press And Blow Machine Tender) - 0(Both) 2. Best Gaze (Lateral Gaze Paresis) - 0(Normal) 3. Visual Field Loss - 0(No visual loss) 4. Facial Palsy - 1(Minor Paralysis) 5a. Left Arm: Motor (10-second hold) - 0(No drift) 5b. Right Arm: Motor (10-second hold) - 0(No drift) 6a. Left Leg: Motor (5-second hold - always test supine) - 0(No drift) 6b. Right Leg: Motor (5-second hold - always test supine) - 0(No drift) 7. Limb Ataxia (finger/nose \T\ heel/guzman - test with eyes open) - 0(Absent) 8. Sensory Loss (pinprick arms/legs/face) - 0(Normal) 9. Best Language: Aphasia (description/naming/reading) - 0(No aphasia) Initials: pf1 NIH Stroke Scale - NIH Stroke Score Date: 04/26/2023 Time: 00:00 Total Score = 1 10. Dysarthria (speech clarity - read or repeat words) - 0(Normal) 11. Extinction and Inattention (visual/tactile/auditory/spatial/personal) - 0(No abnormality) 1a. Level of Consciousness (LOC) - 0(Alert) 1b. Level of Consciousness (LOC) (Month \T\ Age) - 0(Both) 1c. LOC Commands (Open \T\ Closes Eyes/Press And Blow Machine Tender) - 0(Both) 2. Best Gaze (Lateral Gaze Paresis) - 0(Normal) 3. Visual Field Loss - 0(No visual loss) 4. Facial Palsy - 1(Minor Paralysis) 5a. Left Arm: Motor (10-second hold) - 0(No drift) 5b. Right Arm: Motor (10-second hold) - 0(No drift) 6a. Left Leg: Motor (5-second hold - always test supine) - 0(No drift) 6b. Right Leg: Motor (5-second hold - always test supine) - 0(No drift) 7. Limb Ataxia (finger/nose \T\ heel/guzman - test with eyes open) - 0(Absent) 8. Sensory Loss (pinprick arms/legs/face) - 0(Normal) 9. Best Language: Aphasia (description/naming/reading) - 0(No aphasia) Initials: pf1 NIH Stroke Scale - NIH Stroke Score Date: 04/26/2023 Time: 01:00 Total Score = 1 10. Dysarthria (speech clarity - read or repeat words) - 0(Normal) 11. Extinction and Inattention (visual/tactile/auditory/spatial/personal) - 0(No abnormality) 1a. Level of Consciousness (LOC) - 0(Alert) 1b. Level of Consciousness (LOC) (Month \T\ Age) - 0(Both) 1c. LOC Commands (Open \T\ Closes Eyes/Press And Blow Machine Tender) - 0(Both) 2. Best Gaze (Lateral Gaze Paresis) - 0(Normal) 3. Visual Field Loss - 0(No visual loss) 4. Facial Palsy - 1(Minor Paralysis) 5a. Left Arm: Motor (10-second hold) - 0(No drift) 5b. Right Arm: Motor (10-second hold) - 0(No drift) 6a. Left Leg: Motor (5-second hold - always test supine) - 0(No drift) 6b. Right Leg: Motor (5-second hold - always test supine) - 0(No drift) 7. Limb Ataxia (finger/nose \T\ heel/guzman - test with eyes open) - 0(Absent) 8. Sensory Loss (pinprick arms/legs/face) - 0(Normal) 9. Best Language: Aphasia (description/naming/reading) - 0(No aphasia) Initials: pf1 Signatures: Dispatcher [employer] EDMS Chaim Daily MD MD kdr Ami Dorman RN RN Mor Mckinley MD MD sp3 Elida Nye RN RN kc6 Judi Kelley PA-C PA-C sb4 Karin Conn, RN RN pf1 Corrections: (The following items were deleted from the chart) 04/25 21:04 20:05 Telemetry/MedSurg (observation) kdr cg 21:04 20:05 kdr cg 23:14 20:05 Observation kdr kdr 23:14 20:05 [place], [place] kdr kdr 23:14 20:05 Fair kdr kdr 23:14 20:05 new kdr kdr 23:14 20:05 have improved kdr kdr 23:14 20:05 Standard kdr kdr 23:14 20:05 Left facial weakness kdr kdr 23:14 21:04 [facility] ER HOLD cg kdr 23:14 21:04 ERHOLD- cg kdr 23:20 23:16 Stehl/Neurology kdr kdr 04/26 01:08 04/25 23:20 Stehl/Neurology kdr pf1
--- NOTE | 2023-04-25 20:19 | RAD REPORT ---
EXAM DESCRIPTION: CT - Head angio - 04/25/2023 7:27 pm CLINICAL HISTORY: MENTAL STATUS CHANGE COMPARISON: Ct Stroke Brain Wo Cont dated 04/25/2023 TECHNIQUE: Axial CT angiography images of the head was performed with multiplanar and maximum intens ity projection reconstructions. Images performed following intravenous administration of 100mL Isovue 370. All CT scans are performed using dose optimization technique as appropriate and may include automated exposure control or mA/KV adjustment according to patient size. 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 Proximal r ight MCA branches are patent. Multifocal at least moderate stenosis of the mid left M1 segment. Proxi mal left M1 branches are patent. Anterior cerebral arteries and their proximal branches are patent. No evidence of a dissection flap is detected. No vascular malformation identified. Mild focal stenosis of the proximal right basilar artery. Segment of non opacification of the distal vertebral artery, to the level of the vertebrobasilar junction, measuring at least 11 mm in length. Multifocal up to moderate stenosis along the posterior cerebral arteries most notably at the P1 segme nts. The left PICA origin is not visualized, whether this relates to developmental diminution or occl usion is uncertain. The right vertebral artery is dominant. The visualized dural venous sinuses are grossly patent. IMPRESSION: Segment of non opacification of the distal vertebral artery to the level of the vertebro basilar junction. Right vertebral artery is dominant. Left PICA origin is not visualized. Whether this relates to developmental diminution or occlusion is uncertain. Other multifocal stenoses throughout the [place] of [place] as described above, with up to severe steno sis/near occlusion of the most proximal right M1 segment. The findings were communicated to Mor Mckinley on 04/25/2023 at 20:14 hours.
[2023-04-25] MEDS ORDERED: ACETAMINOPHEN 325 MG TABLET PO PRN (20:26)
[2023-04-25] MEDS ORDERED: ONDANSETRON 4 MG/2 ML VIAL IV PRN (20:26)
--- NOTE | 2023-04-25 20:35 | P.HP ---
Certification for Inpatient Patient admitted to: Observation Practitioner: I am a practitioner with admitting privileges, knowledge of patient current condition, hospital course, and medical plan of care. Services: Services provided to patient in accordance with Admission requirements found in Title 42 Section 412.3 of the Code of Federal Regulations Patient History Date of Service: 04/25/23 Physical Examination - Studies Laboratory Data (last 24 hrs) 04/25/23 04/25/23 04/25/23 17:57 17:57 17:57 WBC 7.80 Hgb 13.9 Hct 42.4 Plt Count 333 PT 23.6 H INR 2.20 APTT 48.1 H Sodium 139 Potassium 4.0 BUN 20 H Creatinine 1.05 H Glucose 99 Assessment and Plan - Advance Directives Does patient have a Living Will: No Does patient have a Durable POA for Healthcare: No
[2023-04-25] MEDS ORDERED: NA CHLORIDE 0.9% 1,000 ML IV SCH (21:00)
[2023-04-25] MEDS ORDERED: METOPROLOL TAR 25 MG TAB ONE (22:36)
[2023-04-25] MEDS ORDERED: ASPIRIN 325 MG TAB ONE (23:35)
[2023-04-25] MEDS ORDERED: CLOPIDOGREL 75 MG TABLET ONE (23:44)
[2023-04-26 02:03] VITALS: TEMP 98.1
[2023-04-26 02:10] VITALS: BP 184/74; O2SAT 97
[2023-04-26] MEDS ORDERED: ASPIRIN EC 81 MG TAB PO SCH (09:00)
[2023-04-26] MEDS ORDERED: ENOXAPARIN 40 MG/0.4 ML SQ SCH (09:00)
--- NOTE | 2023-05-01 13:39 | EKG ---
Test Date: 2023-04-25 Test Time: 17:50:08 Band Edger: ONEYDA MEASUREMENT RESULTS: Intervals: Rate: 75 HI: 190 QRSD: 86 QT: 420 QTc: 469 [place]: P: 32 HI: 190 QRS: 23 T: 23 INTERPRETIVE STATEMENTS: Undetermined rhythm Nonspecific ST and T wave abnormality Abnormal ECG No previous ECG available for comparison Electronically Signed On 05-01-23 13:27:33 PRODUCTION PLANNER by Jaden Pinon
--- NOTE | 2023-06-06 05:17 | P.HP ---
Certification for Inpatient Patient admitted to: Observation With expected LOS: <2 Midnights Practitioner: I am a practitioner with admitting privileges, knowledge of patient current condition, hospital course, and medical plan of care. Services: Services provided to patient in accordance with Admission requirements found in Title 42 Section 412.3 of the Code of Federal Regulations Patient History Date of Service: 06/06/23 Reason for admission: Facial droop, suspicion for TIA/CVA. History of Present Illness: 82-year-old female patient who has a medical history significant for hypertension, hyperlipidemia who came to the ED with complaint of facial droop. This is left-sided. There was concern for CVA so patient had imaging studies done revealed significant stenotic lesion in the left vertebral arteries prompting transfer to out side hospital for vascular intervention. At the time of encounter patient denied overt episode of headache, blurry vision, double vision, nausea, vomiting, fever, chills. No dizzy spells reported. No falls reported. Allergies No Known Allergies Allergy (Unverified 04/25/23 23:01) Review of Systems General: Unremarkable Eyes: Unremarkable ENT: Unremarkable Respiratory: Unremarkable Cardiovascular: Unremarkable Gastrointestinal: Unremarkable Genitourinary: Unremarkable Musculoskeletal: Unremarkable Integumentary: Unremarkable Neurological: As per HPI Lymphatics: Unremarkable Physical Examination - Vital Signs Temperature: 98.1 F Blood Pressure: 184/74 Pulse: 86 Respirations: 16 - Physical Exam General: Alert HEENT: Atraumatic Neck: Supple Respiratory: Normal air movement Cardiovascular: Regular rate/rhythm, Normal S1 S2 Gastrointestinal: Soft and benign Musculoskeletal: No swelling Neurological: Normal speech, Normal strength at 5/5 x4 extr Assessment and Plan - Plan TIA/CVA: Patient did have significant clinical symptomatology and imaging studies 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 It was multifocal and this was discussed with neurologist who recommended trans bill to outside hospital for vascular intervention. Plan: Transfer to higher level of care at [facility] for vascular/neurovascular intervention. - Advance Directives Does patient have a Living Will: No Does patient have a Durable POA for Healthcare: No
== END 2023-04-26 01:07 | disposition short-term general hospital (02) ==
LOC: ER 17:38 → ERHOLD 20:14
PROVIDERS: ADMIT Internal Medicine Nephrology; ATTEND Hospitalist
DX: I66.01 Occlusion and stenosis of right middle cerebral artery (principal); R29.810 Facial weakness; I10 Essential (primary) hypertension; E78.5 Hyperlipidemia, unspecified
CPT/HCPCS: 93005; 85025; 80048; 36415; 85610; 85730; 84443; 84484; 84439; 70496; 70498; 70450; 71045; 99285; Q9967; G0378 ×3

== ENCOUNTER → 2023-05-04 | Emergency (ER) | payer OTHER ==
[~2023-05-04] MED LIST: DERMABOND SKIN ADHESIVE TOP ONE
--- NOTE | 2023-05-04 20:15 | RAD REPORT ---
EXAM DESCRIPTION: CT - [id number] - 05/04/2023 8:05 pm CLINICAL HISTORY: Trauma, head and neck injury. PAIN COMPARISON: <Comparisons> TECHNIQUE: Axial 5 mm thick images of the head were obtained. Axial 2 mm thick images of the cervical spine were obtained with sagittal and coronal reconstruction images generated and reviewed. All CT scans are performed using dose optimization technique as appropriate and may include automated exposure control or mA/KV adjustment according to patient size. FINDINGS: CT HEAD WITHOUT CONTRAST: No acute hemorrhage, hydrocephalus or extra-axial collection is identified.Mild generalized brain atr ophy is present with mild periventricular and deep white matter chronic microvascular ischemic change s.No areas of brain edema or midline shift. The paranasal sinuses and mastoids are essentially clear.The calvarium is intact. Mild vertebral athe rosclerosis bilaterally. CT CERVICAL SPINE WITHOUT CONTRAST: No fracture or subluxation.Mild degenerative anterolisthesis of C3 on 4 and C4 on 5 is seen. Mild low er cervical degenerative changes are present.No prevertebral soft tissues swelling is identified. IMPRESSION: No acute intracranial or cervical spine findings. Mild mid and lower cervical degenerative changes.
--- NOTE | 2023-05-04 20:18 | EDPHYS ---
Physician Documentation [facility] Name: Misael Ackerman Age: 82 yrs Sex: Female : 1940 Arrival Date: 05/04/2023 Time: 18:18 Bed 12 Private MD: ED Physician Hosea Juarez HPI: 05/04 20:22 This 82 yrs old Female presents to ER via EMS with complaints of Laceration To Forehead.kb 20:22 Patient is an 82-year-old female who tripped and hit her forehead on the metal part of her wheelchair just prior to arrival. Denies LOC. Patient acting normally per EMS/senior living staff. Patient denies any pain or other injuries.. Historical: - Allergies: 18:24 No Known Allergies; cp4 - PMHx: 18:24 Hypertensive disorder; pleural effusion; cp4 - Immunization history:: Adult Immunizations up to date. - Social history:: Smoking status: Patient denies any tobacco usage or history of. ROS: 20:04 Constitutional: Negative for fever, chills, and weight loss, kb 20:04 Neck: Positive for pain with movement, pain at rest, 20:04 Neuro: Positive for headache, 20:04 All other systems are negative, Exam: 20:04 Constitutional: This is a well developed, well nourished patient who is awake, alert, kb and in no acute distress. Head/Face: Normocephalic, atraumatic. ENT: Moist Mucous membranes Cardiovascular: Regular rate Respiratory: Respirations even and unlabored. No increased work of breathing. Talking in full sentences Abdomen/GI: Soft, non-tender. No distention MS/ Extremity: Pulses equal, no cyanosis. Neurovascular intact. Full, normal range of motion. 20:04 Skin: injury, laceration(s), the wound is approximately 1.5 cm(s), of the forehead, that can be described as clean, no foreign body, linear, without bleeding, 20:04 Neuro: Exam negative for acute changes, Vital Signs: 18:22 BP 152 / 66; Pulse 68; Resp 18; Temp 98; Pulse Ox 98% ; Weight 95.25 kg; Height 5 ft. 4 cp4 in. ; 19:30 BP 139 / 89; Pulse 73; Resp 17 S; Pulse Ox 96% on R/A; ha1 20:30 BP 135 / 82; Pulse 74; Resp 18 S; Pulse Ox 96% on R/A; ha1 18:22 Body Mass Index 36.05 (95.25 kg, 162.56 cm) cp4 Laceration: 20:03 Wound Repair of 1.5cm ( 0.6in ) subcutaneous laceration to forehead. Linear shaped.. kb Distal neuro/vascular/tendon intact. Wound prep: Moderate cleansing by nurse. Skin closed with thin layer Adhesive skin closure using Dermabond. Dressed with steristrips. Patient tolerated well. MDM: 18:24 Patient medically screened. kb 19:59 Data reviewed: vital signs, nurses notes. Historians other than the Patient: EMS: [facility]. 20:04 Differential diagnosis: superficial laceration, abrasion, head injury, ICH. kb 20:17 Counseling: I had a detailed discussion with the patient and/or guardian regarding the kb historical points, exam findings, and any diagnostic results supporting the discharge/admit diagnosis, radiology results, the need for outpatient follow up, a family practitioner, to return to the emergency department if symptoms worsen or persist or if there are any questions or concerns that arise at home. 05/04 18:38 Order name: CT Head C Spine; Complete Time: 20:17 kb 05/04 18:38 Order name: Wound Care; Complete Time: 18:54 kb 05/04 18:38 Order name: Dermabond; Complete Time: 18:54 kb Administered Medications: No medications were administered Disposition: 05/05 08:59 Co-signature as Attending Physician, Hosea Juarez MD I reviewed the patient's care rn provided by the Advanced Practice Provider and agree with the diagnosis and treatment plan. Disposition Summary: 05/04/23 20:18 Discharge Ordered Notes: Location: Home kb Condition: Stable kb Diagnosis - Laceration without foreign body of scalp - forehead kb - Unspecified injury of head, initial encounter kb Followup: kb - With: Emergency Department - When: As needed - Reason: Worsening of condition Followup: kb - With: Private Physician - When: 2 - 3 days - Reason: Recheck today's complaints, Continuance of care, Re-evaluation by your physician Discharge Instructions: - Discharge Summary Sheet kb - Facial Laceration, [id number] kb - Head Injury, Adult, [id number] kb Forms: - Medication Reconciliation Form kb - Thank You Letter kb - Antibiotic Education kb - Prescription Opioid Use kb - Patient Portal Instructions kb - Leadership Thank You Letter kb Signatures: Dispatcher [employer] Katherine Ortiz FNP-C FNP-Hosea Alcaraz MD MD rn Potter, Christina cp4
--- NOTE | 2023-05-04 20:18 | ER ---
Nurse's Notes [facility] Name: Misael Ackerman Age: 82 yrs Sex: Female : 1940 Arrival Date: 05/04/2023 Time: 18:18 Bed 12 Private MD: Diagnosis: Laceration without foreign body of scalp-forehead;Unspecified injury of head, initial encounter Presentation: 05/04 18:22 Chief complaint: EMS states: patient hit her head on her walking causing a laceration cp4 to the forehead. Coronavirus screen: Vaccine status: Patient reports receiving the 2nd dose of the covid vaccine. At this time, the client does not indicate any symptoms associated with coronavirus-19. Ebola Screen: Patient negative for fever greater than or equal to 101.5 degrees Fahrenheit, and additional compatible Ebola Virus Disease symptoms Patient denies exposure to infectious person. Patient denies travel to an Ebola-affected area in the 21 days before illness onset. No symptoms or risks identified at this time. Complicating Factors: There are no complicating factors for this patient. Initial Sepsis Screen: Does the patient meet any 2 criteria? No. Patient's initial sepsis screen is negative. Does the patient have a suspected source of infection? No. Patient's initial sepsis screen is negative. Risk Assessment: Do you want to hurt yourself or someone else? Patient reports no desire to harm self or others. Onset of symptoms was May 04, 2023. 18:22 Method Of Arrival: EMS: [facility] cp4 18:22 Acuity: RCIKEY 4 cp4 21:48 Mechanism of Injury: Fall ha1 Triage Assessment: 18:24 General: Appears in no apparent distress. Behavior is calm, cooperative, appropriate cp4 for age. Pain: Denies pain. Injury Description: Laceration sustained to forehead. Historical: - Allergies: 18:24 No Known Allergies; cp4 - PMHx: 18:24 Hypertensive disorder; pleural effusion; cp4 - Immunization history:: Adult Immunizations up to date. - Social history:: Smoking status: Patient denies any tobacco usage or history of. Screenin:25 [facility] ED Fall Risk Assessment (Adult) History of falling in the last 3 months, cp4 including since admission Yes- single mechanical fall (1 pt) Confusion or Disorientation Yes (5 pts) Intoxicated or Sedated No (0 pts) Impaired Gait Yes (1 pt) Mobility Assist Device Used Yes (1 pt) Altered Elimination No (0 pt) Score/Fall Risk Level 3 or more points = High Risk Oriented to surroundings, Maintained a safe environment, Educated pt \T\ family on fall prevention, incl call for assistance when getting out of bed, Assessed \T\ reinforced patient's understanding of fall precautions, Provided non-skid footwear, Hourly rounding (assess needs \T\ fall precautionary measures) done, Used ambulatory aids as needed (educated on \T\ assisted with). Abuse screen: Denies threats or abuse. Nutritional screening: No deficits noted. Tuberculosis screening: No symptoms or risk factors identified. Primary Survey: 19:20 NO uncontrolled hemorrhage observed. Breathing/Chest: Spontaneous respiratory effort, ha1 equal unlabored respirations, breath sounds clear bilaterally, regular pattern, symmetrical chest rise and fall. Circulation: No external hemorrhage present. Regular and strong central pulse, skin warm/dry/normal color. Disability Pupils are equal, round, reactive to light and accommodation. Exposure/Environment: All clothing and personal items were removed. Forensic evidence collection is not deemed to be indicated at this time. Items placed in patient belonging bag. 21:47 Reassessment Breathing: Spontaneous respiratory effort, equal unlabored respirations, ha1 breath sounds clear bilaterally, regular pattern with symmetrical chest rise and fall. Circulation: No external hemorrhage noted. Regular and strong central pulse, skin warm/dry/normal color. Disability: Pupils Pupils are equal, round, reactive to light and accomodation. Assessment: 18:25 Musculoskeletal: No deficits noted. Injury Description: Laceration is clean, 0.5 to 2.5 cp4 cm long. 19:30 General: Appears comfortable, Behavior is calm, cooperative. Pain: Complains of pain in ha1 forehead Pain does not radiate. Pain currently is 4 out of 10 on a pain scale. Quality of pain is described as burning. Neuro: Level of Consciousness is awake, alert, obeys commands, Oriented to person, place, time. Cardiovascular: Capillary refill < 3 seconds Patient's skin is warm and dry. Respiratory: Airway is patent Respiratory effort is even, unlabored, Respiratory pattern is regular, symmetrical. Derm: Skin is pink, warm \T\ dry. Injury Description: Laceration sustained to forehead is clean, superficial, 0.5 to 2.5 cm long. 19:55 Reassessment: going to CT. ha1 20:46 Reassessment: Patient and/or family updated on plan of care and expected duration. Pain ha1 level reassessed. awaiting on transportation. 21:00 Reassessment: [facility] ETA 1 hour per [facility]. pf1 Vital Signs: 18:22 BP 152 / 66; Pulse 68; Resp 18; Temp 98; Pulse Ox 98% ; Weight 95.25 kg; Height 5 ft. 4 cp4 in. ; 19:30 BP 139 / 89; Pulse 73; Resp 17 S; Pulse Ox 96% on R/A; ha1 20:30 BP 135 / 82; Pulse 74; Resp 18 S; Pulse Ox 96% on R/A; ha1 18:22 Body Mass Index 36.05 (95.25 kg, 162.56 cm) cp4 ED Course: 18:20 Patient arrived in ED. cp4 18:21 Adriana Arvizu is Primary Nurse. cp4 18:24 [facility] kb 18:24 Hosea Juarez MD is Attending Physician. kb 18:24 Triage completed. cp4 18:24 Arm band placed on right wrist. Patient placed in the treatment room, on a stretcher. cp4 18:25 Bed in low position. Call light in reach. Side rails up X2. cp4 20:06 CT Head C Spine In Process Unspecified. EDMS 21:00 Report given to ISRA Martinez. ha1 21:47 Patient did not have IV access during this emergency room visit. ha1 21:50 No provider procedures requiring assistance completed. ha1 21:51 Provided Education on: fall precaution . ha1 Administered Medications: No medications were administered Medication: 18:25 VIS not applicable for this client. cp4 Outcome: 20:18 Discharge ordered by . kb 21:50 Discharged to [facility]. Report called to ISRA Be ha1 21:50 Condition: stable 21:50 Discharge instructions given to patient, Instructed on discharge instructions, follow up and referral plans. Demonstrated understanding of instructions, follow-up care, 21:52 Patient left the ED. ha1 Signatures: Dispatcher [employer] [facility] Katherine Merritt FNP-C FNP-Ckb Ayala, Heidy, RN RN ha Karin Conn RN RN pf1 Adriana Arvizu cp4
[2023-05-04 22:46] VITALS: BP 135/82; TEMP 98; O2SAT 96
== END ==
LOC: ER 18:18
PROC: 0HQ1XZZ Repair Face Skin, External Approach (ICD-10-PCS; principal; 2023-05-04)
DX: S01.81XA Laceration without foreign body of other part of head, initial encounter (principal); W01.118A Fall on same level from slipping, tripping and stumbling with subsequent striking against other sharp object, initial encounter
CPT/HCPCS: 70450; 72125; 99283